=== PATIENT | male | born 1975 | race Caucasian/White ===

== ENCOUNTER 2020-09-20 11:22 | Outpatient (REF) | payer OTHER, SELFPAY ==
--- NOTE | 2020-09-20 | US_ITS ---
EXAMINATION: US COMPLETE ABDOMEN WITH LIVER ELASTOGRAPHY CLINICAL INFORMATION: Obesity. COMPARISON: None. TECHNIQUE: Real-time imaging of the abdominal viscera. Noninvasive ultrasound liver fibrosis assessment is performed using [employer] ElastPQ point quantification shear wave elastography (pSWE) with a 5 MHz transducer. Multiple elastography samples are obtained. FINDINGS: PANCREAS: The visualized pancreatic head and body are normal in appearance. The remainder of the pancreas is obscured from visualization by the overlying bowel gas. ABDOMINAL AORTA: The proximal, middle, and distal aortic segments are normal in caliber. INFERIOR VENA CAVA: Visualized portions are normal. LIVER: The liver demonstrates normal size, contour and increased echogenicity. No focal lesion or intrahepatic biliary duct dilatation. The right lobe measures 13.9 cm in length. The left lobe measures 11.2 cm in length. Normal hepatopedal flow seen in the portal vein on Doppler exam. Shear wave elastography provides a median stiffness of 1.45 m/s (reference: normal median stiffness is 0.81 - 1.22 m/s). The IQR/median stiffness to assess sampling precision is 0.30 (reference: optimal IQR/median stiffness is under 0.3). GALLBLADDER: There are multiple echogenic nonmobile polyps. The largest polyp measures 0.4 x 0.4 cm. The gallbladder is physiologically distended without evidence of sludge, stones, wall thickening or pericholecystic fluid. Or gallbladder wall thickness measures 0.2 cm COMMON BILE DUCT: Normal in caliber measuring 0.2 cm in diameter. RIGHT KIDNEY: Normal. No hydronephrosis. No renal calculi or focal parenchymal lesions. The kidney measures 13.3 cm in maximum dimension. LEFT KIDNEY: There is anechoic cyst lower pole measuring 0.8 0.7 x 0.8 cm. There is an extrarenal left kidney pelvis. No renal calculi or focal parenchymal lesions. The kidney measures 13.4 cm in maximum dimension. SPLEEN: Normal. The spleen measures 11.3 cm in maximum dimension. FREE FLUID: None. US/US abdomen comp w elastography IMPRESSION: 1. Hepatic steatosis without focal lesion. Nonmobile echogenic gallbladder polyp. No echogenic stones or wall thickening. 2. Elastography: [id number] fibrosis. Metavir score F2 - F3
== END 2020-09-20 11:23 | disposition home or self-care (01) ==
LOC: HO.US 11:22
PROVIDERS: Visit Provider Internal Medicine Gastroenterology
DX: E66.01 Morbid (severe) obesity due to excess calories (principal)
CPT/HCPCS: 76705; 76981

== ENCOUNTER → 2020-12-12 10:13 | Outpatient (BNVA) | payer OTHER, SELFPAY | PROVIDERS: PCP Internal Medicine; Visit Provider Internal Medicine Gastroenterology | DX: Z76.89 Persons encountering health services in other specified circumstances (principal) ==

== ENCOUNTER → 2021-08-22 11:31 | Outpatient (BNVA) | payer OTHER, SELFPAY | PROVIDERS: PCP Internal Medicine; Visit Provider Physician Assistant ==